=== PATIENT | female | born 1960 | race Caucasian/White ===

== ENCOUNTER 2024-04-27 21:38 | Inpatient (IN) | payer OTHER ==
[~2024-04-27] VITALS: Ht 154.9 cm; Wt 67.9 kg
[2024-04-27] MEDS ORDERED: HYDROmorphone HCl/Pf 1MG SYR ONE (21:40)
[2024-04-27] MEDS ORDERED: Lactated Ringer's 1,000 ML IV ONE (21:50)
[2024-04-27] MEDS ORDERED: Diphth,Pertuss(Acell),Tet Vac 0.5 ML VIAL IM ONE (21:50)
[2024-04-27] MEDS ORDERED: HYDROmorphone HCl/Pf 1MG SYR IV ONE (21:50)
[2024-04-27 22:01] LABS: BASOPHILS ABSOLUTE AUTO 0.12 K/mm3 (0.00-0.23); BASOPHILS PERCENT AUTO 1 % (0-2); EOSINOPHILS ABSOLUTE AUTO 0.11 K/mm3 (0.00-0.68); EOSINOPHILS PERCENT AUTO 0 % (0-6); Hematocrit 33.6 % (33.0-51.0); Hemoglobin 11.3 g/dL (11.5-16.0); IMMATURE GRAN ABSOLUTE AUTO 0.18 K/mm3 (0.00-0.10); IMMATURE GRAN PERCENT AUTO 1 % (0-1); LYMPHOCYTES ABSOLUTE AUTO 1.79 K/mm3 (0.84-5.20); LYMPHOCYTES PERCENT AUTO 7 % (21-46); MONOCYTES ABSOLUTE AUTO 1.24 K/mm3 (0.16-1.47); MONOCYTES PERCENT AUTO 5 % (4-13); Mean Corpuscular HGB 29.2 pg (26.0-34.0); Mean Corpuscular HGB Conc 33.6 g/dL (31.5-36.5); Mean Corpuscular Volume 87 fL (80-100); NEUTROPHILS ABSOLUTE AUTO 22.31 K/mm3 (1.96-9.15); NEUTROPHILS PERCENT AUTO 87 % (41-73); RDW Coefficient Variation 13.1 % (11.7-14.2); RDW Standard Deviation 41.2 fL (35.1-46.3); Red Blood Cell Count 3.87 M/mm3 (3.80-5.20); White Blood Cell Count 25.75 K/mm3 (4.00-11.30)
[2024-04-27 22:02] LABS: Mean Platelet Volume 9.6 fL (9.1-12.4); Platelet Count 267 K/mm3 (150-400)
[2024-04-27 22:12] LABS: Albumin, Blood 3.4 g/dL (3.4-5.0); Albumin/Globulin Ratio 1.1 (0.8-1.8); Bilirubin, Total 0.5 mg/dL (0.1-1.0); Bun/Creatinine Ratio 19.8 (12.0-20.0); Calcium, Blood 8.4 mg/dL (8.5-10.1); Creatinine, Blood 1.01 mg/dL (0.40-1.00); Potassium, Blood 3.2 mmol/L (3.5-5.5); Total Protein, Blood 6.4 g/dL (6.4-8.2)
[2024-04-27 22:25] LABS: International Normalized Ratio 1.05; Prothrombin Time Results 11.2 Sec (9.7-11.5)
[2024-04-27] MEDS ORDERED: CeFAZolin Sodium 2,000 MG in NS 100 ML IV ONE (23:00)
[2024-04-27] MEDS ORDERED: HYDROmorphone HCl/Pf 1MG SYR IV PRN (23:05)
[2024-04-27 23:23] LABS: Influenza A, PCR NEGATIVE (NEGATIVE); Influenza B, PCR NEGATIVE (NEGATIVE); Resp Syncytial Virus, PCR NEGATIVE (NEGATIVE); SARS-Cov-2 (COVID-19) PCR, MMC NEGATIVE (NEGATIVE)
[2024-04-27] MEDS ORDERED: Ondansetron HCl 2 MG / ML 2ML Vial IV PRN (23:45)
[2024-04-27] MEDS ORDERED: NS 1,000 ML IV SCH (23:45)
[2024-04-28] VITALS: BP 151/83
[2024-04-28] MEDS ORDERED: FentaNYL Citrate 50 MCG/ML 2 ML Injection IV PRN (00:05)
[2024-04-28] MEDS ORDERED: HYDROmorphone HCl/Pf 1MG SYR IV PRN (00:05)
[2024-04-28] MEDS ORDERED: FLU VACC TS2024-25(6MOS UP)/PF 45 MCG/0.5 ML SYRINGE IM SCH (00:05)
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
[2024-04-28] MEDS ORDERED: Sodium Chloride 0.45% 1,000 ML IV SCH (03:20)
[2024-04-28] MEDS ORDERED: Potassium Chl 20MEQ/Water100ML 100 ML IV SCH (03:40)
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
[2024-04-28 04:56] LABS: BASOPHILS ABSOLUTE AUTO 0.04 K/mm3 (0.00-0.23); BASOPHILS PERCENT AUTO 0 % (0-2); EOSINOPHILS PERCENT AUTO 0 % (0-6); Hematocrit 29.5 % (33.0-51.0); Hemoglobin 9.8 g/dL (11.5-16.0); IMMATURE GRAN ABSOLUTE AUTO 0.05 K/mm3 (0.00-0.10); IMMATURE GRAN PERCENT AUTO 0 % (0-1); LYMPHOCYTES ABSOLUTE AUTO 0.82 K/mm3 (0.84-5.20); LYMPHOCYTES PERCENT AUTO 6 % (21-46); MONOCYTES ABSOLUTE AUTO 0.71 K/mm3 (0.16-1.47); MONOCYTES PERCENT AUTO 5 % (4-13); Mean Corpuscular HGB 29.1 pg (26.0-34.0); Mean Corpuscular HGB Conc 33.2 g/dL (31.5-36.5); Mean Corpuscular Volume 88 fL (80-100); Mean Platelet Volume 9.7 fL (9.1-12.4); NEUTROPHILS ABSOLUTE AUTO 13.35 K/mm3 (1.96-9.15); NEUTROPHILS PERCENT AUTO 89 % (41-73); Platelet Count 251 K/mm3 (150-400); RDW Coefficient Variation 13.1 % (11.7-14.2); RDW Standard Deviation 42.2 fL (35.1-46.3); Red Blood Cell Count 3.37 M/mm3 (3.80-5.20); White Blood Cell Count 14.97 K/mm3 (4.00-11.30)
[2024-04-28 05:09] VITALS: BP 146/82
[2024-04-28 05:18] LABS: Albumin, Blood 3.2 g/dL (3.4-5.0); Albumin/Globulin Ratio 1.1 (0.8-1.8); Bilirubin, Total 0.5 mg/dL (0.1-1.0); Bun/Creatinine Ratio 20.4 (12.0-20.0); Calcium, Blood 8.2 mg/dL (8.5-10.1); Creatinine, Blood 0.83 mg/dL (0.40-1.00); Globulin, Blood 2.8 g/dL (2.2-4.0); Potassium, Blood 3.7 mmol/L (3.5-5.5)
[2024-04-28 07:11] VITALS: BP 165/87
--- NOTE | 2024-04-28 07:45 | NUR ---
ORDER PROCESSING MANAGER DOCUMENTATION This nursing home physician received verbal consent to participate in care.
[2024-04-28] MEDS ORDERED: HYDROcodone 5-APAP 325 TAB PO PRN (08:50)
[2024-04-28] MEDS ORDERED: CeFAZolin Sodium 2,000 MG in NS 100 ML IV SCH (09:00)
[2024-04-28 10:33] LABS: Bun/Creatinine Ratio 19.8 (12.0-20.0); Creatinine, Blood 0.81 mg/dL (0.40-1.00); Potassium, Blood 3.8 mmol/L (3.5-5.5)
[2024-04-28] MEDS ORDERED: Albuterol 2.5 MG/3 ML VIAL INH PRN (13:20)
[2024-04-28] MEDS ORDERED: Cyclobenzaprine HCl 10 MG Tab PO PRN (13:20)
[2024-04-28] MEDS ORDERED: Tiotropium Bromide 2.5 MCG/ACT MIST INHAL (10 ACT/4 GM) INH SCH (13:20)
[2024-04-28 13:30] LABS: Source, Urine Clean Catch
[2024-04-28 13:41] LABS: Appearance, Urine Clear (Clear); Bilirubin, Urine Neg (Neg); Blood, Urine 4+ (Neg); Color, Urine Yellow (P-Yellow); Glucose Qualitative, Urine Neg (Neg); Ketones, Urine Neg (Neg); Leukocyte Esterase, Urine 1+ (Neg); Nitrite, Urine Neg (Neg); Protein, Urine 1+ (Neg); Urobilinogen, Urine NORM (Normal)
[2024-04-28 13:50] LABS: Amorphous Light (0-Heavy); Bacteria Few /hpf; Hyaline Casts 0-2 /lpf (0-2); Squamous Epithelial Cells Few /hpf (Few)
[2024-04-28 15:51] VITALS: BP 127/63
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
--- NOTE | 2024-04-28 17:11 | NUR ---
This nurse and nursing education specialist assisted patient for a shower. Dressing changed. Pt tolerated well.
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
[2024-04-28 20:53] VITALS: BP 126/72
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
[2024-04-29 05:24] LABS: Hematocrit 26.7 % (33.0-51.0); Hemoglobin 8.6 g/dL (11.5-16.0); Mean Corpuscular HGB 28.9 pg (26.0-34.0); Mean Corpuscular HGB Conc 32.2 g/dL (31.5-36.5); Mean Corpuscular Volume 90 fL (80-100); Mean Platelet Volume 9.9 fL (9.1-12.4); Platelet Count 236 K/mm3 (150-400); RDW Coefficient Variation 13.4 % (11.7-14.2); Red Blood Cell Count 2.98 M/mm3 (3.80-5.20); White Blood Cell Count 9.03 K/mm3 (4.00-11.30)
[2024-04-29 05:46] VITALS: BP 149/75
[2024-04-29 07:49] VITALS: BP 119/63
[2024-04-29 15:09] VITALS: BP 144/71
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
[2024-04-30 01:16] VITALS: BP 127/63
[2024-04-30 04:31] VITALS: BP 148/75
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
[2024-04-30 07:12] VITALS: BP 147/75
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
[2024-04-30 14:13] VITALS: BP 135/68
--- NOTE | 2024-04-30 17:28 | NUR ---
Shift Summary Pt worked with physical therapy this morning. Encouraged movement and walking throughout the day. Pt ambulated with SBA and FWW to bathroom. Ambulated to doorway and back to chair prior to dinner. Agree's to walk again tonight before bedtime. Dressing changed. C/D/I. Pain managed at this time. Denies n/t. PPP. VSS.
[2024-04-30 19:17] VITALS: BP 162/86
[2024-04-30] MEDS ORDERED: Polyethylene Glycol 3350 17 gm PO SCH (21:40)
[2024-05-01 03:20] VITALS: BP 142/83
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
[2024-05-01 07:14] VITALS: BP 142/79
[2024-05-01 14:55] VITALS: BP 128/68
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
[2024-05-01 19:15] VITALS: BP 144/80
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
[2024-05-02 07:37] VITALS: BP 134/83
[2024-05-02] MEDS ORDERED: HYDROCODONE-AC1 EA10 PO (09:49)
[2024-05-02] MEDS ORDERED: MIRALAX17 GM PO (10:17)
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
== END 2024-05-02 15:00 | disposition home health service (06) | DRG 605 ==
LOC: ER 21:38 → SURS 21:39
PROVIDERS: Internal Medicine; Student in an Organized Health Care Education/Training Program; ADMIT Surgery
DX: S31.813A Puncture wound without foreign body of right buttock, initial encounter (principal); E87.0 Hyperosmolality and hypernatremia; W33.02XA Accidental discharge of hunting rifle, initial encounter; J44.9 Chronic obstructive pulmonary disease, unspecified; G89.11 Acute pain due to trauma; E87.6 Hypokalemia; M62.89 Other specified disorders of muscle; I10 Essential (primary) hypertension; Z98.1 Arthrodesis status; Z98.890 Other specified postprocedural states; Z87.891 Personal history of nicotine dependence; F15.10 Other stimulant abuse, uncomplicated; F10.90 Alcohol use, unspecified, uncomplicated; D72.829 Elevated white blood cell count, unspecified; M54.9 Dorsalgia, unspecified; Z79.891 Long term (current) use of opiate analgesic
CPT/HCPCS: 0241U; 36415; 36416; 71260; 72170; 72193; 73501; 74177; 80048; 80053; 81001; 83690; 83880; 85025; 85027; 85610; 85730; 86850; 86900; 86901; 87077; 87086; 87186; 90471; 90715; 94640; 94664; 94760; 94762; 96361; 96365-59; 96375; 96376; 97110; 97116; 97162; 97530; 99285-25; A9270; J0690; J1170; J2405; J3010; J3480; J7030; J7120; Q9967